=== PATIENT | male | born 1975 | race Caucasian/White ===

== ENCOUNTER 2024-02-03 05:19 | Observation (INO) ==
--- NOTE | 2024-01-13 13:02 | PAT Medication Instructions ---
Medication Instructions Date of Service January 13, 2024 Home Medications escitalopram oxalate 10 mg tablet 10 mg PO HS Take evening before surgery escitalopram oxalate 10 mg tablet 10 mg PO HS NOTHING TO EAT OR DRINK AFTER MIDNIGHT Other Notes If you have any questions please call us at [phone] or [phone] or [phone] or [phone]
--- NOTE | 2024-01-15 09:11 | Anesthesiology Consultation ---
Date of Service January 15, 2024 Assessment & Plan (1) Encounter for pre-operative examination: - Outpatient joint assessment: Patient is currently scheduled for inpatient pathway. If re-evaluated and patient/surgeon requests outpatient pathway, patient is acceptable candidate for outpatient joint program from anesthesia standpoint pending surgeon's office assessment of pt motivation/support/completion of same day joint program preop requirements. Chart Review Chart Review: Acceptable Risk for Surgery and Patient seen in Pre Admission Testing Teaching & Discussion Pre-Anesthesia Teaching/Discussion Notes: Instructed NPO after midnight before surgery, except medications with 15 cc of water. Medication instructions provided according to the PAT guidelines. History Surgery Operation Date: 02/03/24 10:40 Proposed Procedures p Left Total Hip Arthroplasty - Parminder Crocker MD Height/Weight Height: 5 ft 7 in Weight: 98.2 kg Allergies Allergy/AdvReac Type Severity Reaction Status Date / Time No Known Drug Allergies Allergy Unknown . Verified 01/13/24 07:33 Medications Home Medications Medication Instructions Recorded Confirmed Last Taken escitalopram oxalate 10 mg tablet 10 mg PO HS 01/13/24 01/13/24 Unknown Past Medical History Medical History Anxiety History of COVID-19 (2020) no hosp; resolved Patient denies h/o stroke, seizures, heart attack, heart failure, DM, HTN, blood clots/DVTs or blood transfusions. Exercise / Class Metabolic Activity II 4-5 Yardwork/Stairs/Walk up hill (denies chest discomfort or shortness of breath with one flight of stairs) Past Family History Family History Other No family history of adverse response to anesthesia Past Surgical History Surgical History (Updated 01/15/24 @ 09:18 by Nandini Kirby PA-C) History of esophagogastroduodenoscopy (EGD) History of open reduction and internal fixation (ORIF) procedure right foot fracture History of removal of retained hardware right foot Hx of colonoscopy Past Anesthesia History No Hx of Anesthesia Complications and No Family Hx of Anesthesia Complications History of PONV No Hx of PONV and No Hx of Motion Sickness Social History Smoking Status: Never smoker Do You Dip or Chew Tobacco: No Hx Alcohol Use: No Hx Substance Use: No substance use type: does not use Review of Systems Snoring, denies witnessed apneas. Patient denies chest pain, shortness of breath, dyspnea on exertion, reflux, fever, chills, cough, wheezing, or palpitations. Physical Exam Vital Signs Vitals BP 116/81 P 65 TEMP 98.1 SP02 96% on RA RESP 18 Physical Patient resting comfortably in chair in no acute distress, alert and oriented, responding appropriately throughout visit Full cervical extension range of motion without pain TMD 3.5 finger breadths Mallampati Score 2 Dentition: broken left side tooth, denies loose teeth, caps/crowns, implants or bridges Lungs: normal respiratory effort. Good air movement, clear throughout to auscultation, no adventitious breath sounds Cardiac: regular rate and rhythm, no murmurs noted Carotid arteries: negative bruit bilat Lab Results Anesthesia Preop Results Results Anesthesia Widget: WBC 6.19 K/ul (4.8-10.8) 01/15/24 Hgb 15.5 g/dl (14.0-18.0) 01/15/24 Hct 42.7 % (42.0-52.0) 01/15/24 Plt 219 K/uL (130-400) 01/15/24 Na 140 mmol/L (136-145) 01/15/24 K 4.0 mmol/L (3.5-5.1) 01/15/24 Cl 105 mmol/L (98-107) 01/15/24 CO2 30 mmol/L (21-32) 01/15/24 BUN 11 mg/dl (6-23) 01/15/24 Creat 0.84 mg/dl (0.6-1.4) 01/15/24 Glucose Level 93 mg/dl (70-99(Fasting)) 01/15/24 PT 11.1 Seconds (9.0-12.0) 01/15/24 PTT 29 Seconds (21-31) 01/15/24 INR 1.0 (0.9-1.1) 01/15/24 Blood Type O Positive 01/15/24 Antibody Screen NEGATIVE 01/15/24 Testing Electrocardiogram Date: 01/15/24 Sinus bradycardia, rate 58 bpm Left anterior fascicular block Chest X-Ray Date: 01/15/24 No acute process.
--- NOTE | 2024-01-30 17:35 | History & Physical Report ---
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 His exam is certainly more impressive than the x-rays. He is got very stiff hips. I think this is the source of the majority of his problems. NuPrep plan we talked about treatment Pees bit he is exhausted conservative care. He would like to proceed with definitive treatment of the left hip. Will proceed with left hip replacement. Risks Mente this procedure explained. He is fully aware his young age this might need to be revised in the future. He is kenny plan stay in the hospital overnight. Discharge postop day 1. Aspirin DVT prophylaxis History of Present Illness Chief Complaint: . Bilateral hip pain discomfort and stiffness left side greater than the right. Primary Care Provider: Douglas Ricci PA-C . 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 He has a longstanding gradual progressive hip pain and discomfort and stiffness of the left side worse than the right. Describes it is gotten worse over time. He is having difficulty maintaining an active lifestyle. He has difficulty putting shoes and socks on. He does not wrestle anymore due to hip pain and stiffness. Takes medicines with minimal relief. He may like to proceed with definitive treatment. Allergies Allergy/AdvReac Type Severity Reaction Status Date / Time No Known Drug Allergies Allergy Unknown . Verified 01/13/24 07:33 Home Medications Medication Instructions Recorded Confirmed Type escitalopram oxalate 10 mg tablet 10 mg PO HS 01/13/24 01/13/24 History Past Med/Surg History Problem List Encounter for pre-operative examination Bilateral hip joint arthritis Right rotator cuff tendinitis Degenerative joint disease of left hip Medical History Anxiety History of COVID-19 (2020) no hosp; resolved Surgical History History of esophagogastroduodenoscopy (EGD) Hx of colonoscopy History of removal of retained hardware right foot History of open reduction and internal fixation (ORIF) procedure right foot fracture Family History Other No family history of adverse response to anesthesia Social History Smoking Status: Never smoker Second Hand Exposure: No; Do You Dip or Chew Tobacco: No; Hx Alcohol Use: No Hx Substance Use: No Preferred Language: Thai Communication Ability: Effective 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 Physical Exam . Physical examination reveals a pleasant middle-age male who looks in pretty good health. His gait shows a gentleman who walks with externally rotated feet. Walks with a bit of a limp and waddling, gait. Examination left hip reveals a very stiff hip. His leg lengths are pretty equal. He cannot even internally rotate to neutral. This is causes pain. No knee effusion. He is neurologically intact. Constitutional WD/WN, vitals as above Neck trachea midline, no thyromegaly Respiratory normal respiratory effort, lungs clear to auscultation Cardiovascular RRR, no murmur, no edema Gastrointestinal (Abdomen) normal bowel sounds, soft, nontender, no hepatosplenomegaly Results & Data Results & Data Laboratory Results . Diagnostic Findings . X-rays of both hips were reviewed. Shows moderately advanced hip arthritis. Is got osteophytes around the acetabulum as well as the femoral head on both sides. Good cam type impingement. PG Care Time/CCT Total # of Minutes Spent Total Time Spent with Patient: Total time spent is greater than 50% in coordination of care (as documented) at patient's floor/unit and/or counseling patient: Coding Level of Care Code None Diagnoses Bilateral hip joint arthritis M16.0
[2024-02-03] MEDS: LR 500ML BOLUS, THEN 15ML/HR IV SCH (06:07)
[2024-02-03] MEDS: METOCLOPRAMIDE HCL 10 MG TABLET PO SCH (06:09)
[2024-02-03] MEDS: CeleBREX 200 MG CAP PO SCH (06:09)
[2024-02-03] MEDS: ACETAMINOPHEN 500 MG TAB PO SCH ×3 (06:09→20:22)
[2024-02-03] MEDS: FAMOTIDINE 20 MG TAB PO SCH (06:09)
[2024-02-03] MEDS: LR 60ML/HR IV SCH (06:10)
[2024-02-03] MEDS ORDERED: BUPIVACAINE 0.5 % 5 MG/1 ML PF 10ML VIAL ONE (06:26)
--- NOTE | 2024-02-03 06:43 | History & Physical Bridge Note ---
Date of Service February 03, 2024 History & Physical Bridge Note I have examined the patient, reviewed the History & Physical and in the interval since the performance of the History & Physical I have noted the following changes of clinical significance: no changes noted
[2024-02-03] MEDS ORDERED: MIDAZOLAM HCL 1 MG/ML 2ML VIAL ONE ×3 (06:47→06:50)
[2024-02-03] MEDS ORDERED: fentaNYL citrate PF 100 MCG/2 ML VIAL ONE (06:48)
[2024-02-03] MEDS: TRANEXAMIC ACID 1,000 MG **IV Pre-op IV SCH (06:55)
[2024-02-03] MEDS: ceFAZolin 2000MG 2,000 MG/15 ML SYR IV SCH ×2 (07:04→14:41)
[2024-02-03] MEDS ORDERED: PROPOFOL IV EMULSION 10 MG/ML 20 ML VIAL IV ONE (07:40)
[2024-02-03] MEDS: BUPIVACAINE/EPINEPHRINE 0.5% MPF 1:200,000 30 ML VIAL ONE (07:43)
[2024-02-03] MEDS ORDERED: ePHEDrine sulfate 50 MG/5 ML SYR ONE (07:50)
[2024-02-03] MEDS ORDERED: ePHEDrine sulfate 50 MG/ML AMP IV PRN (08:14)
[2024-02-03] MEDS ORDERED: HYDROmorphone INJ 2 MG/ML SYR/VIAL IV PRN (08:14)
[2024-02-03] MEDS ORDERED: PROMETHAZINE HCL 6.25 MG in SODIUM CHLORIDE 0.9% 50 ML IV PRN (08:14)
[2024-02-03] MEDS ORDERED: fentaNYL citrate PF 100 MCG/2 ML VIAL IV PRN (08:14)
[2024-02-03] MEDS ORDERED: ATROPINE SULFATE 0.1 MG/ML 10ML SYR IV PRN (08:14)
[2024-02-03] MEDS ORDERED: ONDANSETRON INJ 2 MG/ML 2 ML VIAL IV PRN ×2 (08:14→10:29)
--- NOTE | 2024-02-03 08:46 | Operative Report ---
PG Post Operative Report Pre & Post Diagnosis Operation Date: 02/03/24 07:00 Pre-Op Diagnosis: Osteoarthritis Hip Left Post-Op Diagnosis: Osteoarthritis Hip Left I identified the patient and participated in the time-out.: Yes Procedure Operation Date: 02/03/24 07:00 Actual Procedures p Left Total Hip Arthroplasty(Left) - Parminder Crocker MD Surgeon Parminder Crocker MD Partnership Manager Db Noguera PA-C Estimated Blood Loss 200 Findings Consistent with Post-Op Diagnosis Operative findings revealed a left hip arthritis. He had a fairly significant hip joint effusion. The osteophytes around the femoral head. Lateral acetabular osteophytes. Very stiff hip preoperatively. Specimens Left femoral head sent for pathology. 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 Is been through extensive conservative treatment which become less successful over time. X-rays showed a moderate to advanced hip arthritis. He had a lot of cam type impingement. Very stiff hips. He elected to the left total hip arthroplasty. Description of Procedure Operative implants consist of: 1 Biomet G7 size 56 mm acetabular shell. 2. [place] hole exerciser horse. 3. Highly cross-linked polyethylene liner with a 56 mm outer diameter 36 mm inner diameter. 4. 6.5 cancellous acetabular screws 1 at 35 mm in length and 1 of 30 mm length. 5. DePuy Karaya size 11 KLA femoral stem. 6. +1.5/36 mm ceramic articular ball. The patient was taken the op room, identified, placed on the operating table in the supine position. All contractors were appropriately padded. IV antibiotics tried by anesthesia team. A spinal anesthetic had been implemented holding area. The patient was then placed in the right lateral decubitus position. An axillary roll was placed. A stool Birkett position was used for positioning. The left hip and leg were then prepped and draped in usual sterile fashion. A posterior lateral approach to the left hip was then performed with a curvilinear incision centered over the greater trochanter. Sharp dissection was got through subcutaneous tissue down to level the IT band gluteal fascia the IT band gluteal fascia incised longitudinally in line with skin incision. The underlying greater bursa was excised. The piriformis and external rotators along with the posterior hip joint capsule were then released in the posterior aspect the hip as a single layer. He did have a pretty significant hip joint effusion. The muscle of the gluteus ernst did extend pretty far distally which made exposure little bit more difficult. Hip was internally rotated and dislocated. Femoral neck osteotomy cut was made with Final Cut 15 mm above the lesser trochanter. Femoral head was removed and sent for pathology. The femur was retracted anteriorly. Attention drawn the acetabulum. The acetabular labrum was excised. Pulmonary fat was excised. Sequential reaming the acetabular was then performed and was sized 47 and progressing up to 55. I reamed some with a 56 reamer and then placed a Biomet G7 acetabular shell in about 40 degrees lateral opening and 20 degrees of anteversion. It was fixed with two 6.5 screws. A trial liner was placed. Attention drawn the femur. The proximal femur was entered with a Saberr cutter followed by canal finder. I then broached beginning size 8 and progressing up to 11. Excellent fit 11. We trialed the hip. With the +5 articular ball which is seen too tight. That was fully stable. We therefore elected to use the +1.5 articular ball. The hip was fully stable. Still a bit tight in extension but I elected to except this. Leg lengths seemed equal. All trial implants were removed. An apex hole exerciser horse was placed. Highly cross-linked polyethylene liner was placed. A size 11 KLA femoral stem was impacted in position. A +1.5/36 mm ceramic articular ball was placed. Hip was located and once again found to be stable. Attention drawn toward closing. The wound was irrigated coconuts of normal saline. We did inject locally with 60 cc of absent Marcaine with epinephrine. The posterior capsule and external rotators were then repaired through drill holes in the posterior trochanter with #2 Tycron suture. The IT band gluteal fascia then closed in 1 PDS suture in running fashion with subcutaneous tissues then closed with 2 Dexon suture in a buried interrupted fashion. Skin was closed skin sai. Leg was then cleaned and dried and sterile dressed with Xeroform, 4 fours, ABD pad and foam tape was applied. Patient then transferred to the recovery room in stable condition. Patient tolerated procedure well and there were no complications. Db Noguera, my physician activity assistant, was present for the entire procedure. His assistance was essential and required for appropriate patient positioning, prepping and draping, surgical exposure, performing the technical details of the operation, placement the implants, closure of the wound, and placement of the sterile bandage. I attest to the content of the Intraoperative Record and any orders documented therein. Any exceptions are noted below.
--- NOTE | 2024-02-03 09:44 | XRay Report ---
XR hip 1V LT w pelvis HISTORY: 48 years-old Male IN PACU - Post Surgical left hip arthroplasty COMPARISON: Radiographs 01/04/2024 TECHNIQUE: AP view the pelvis with crosstable lateral view of the left hip FINDINGS: Satisfactory alignment of the left hip arthroplasty. Lateral skin sai are present along with expe cted postoperative soft tissue swelling with deep tissue air. Moderate to severe right hip osteoarthr itis again noted. IMPRESSION: Satisfactory alignment of the left hip arthroplasty. ACT 112: Negative or not required by law. The above report was generated using voice recognition software. It may contain grammatical, syntax o r spelling errors. Electronically signed by: Surya Marlow M.D. 02/03/2024 9:43 AM
[2024-02-03] MEDS ORDERED: NALOXONE HCL 0.4 MG/1 ML VIAL/CARP IV PRN (10:29)
[2024-02-03] MEDS ORDERED: ALUMINUM/MAGNESIUM SUSP 30 ML UDC PO PRN (10:29)
[2024-02-03] MEDS ORDERED: METOCLOPRAMIDE HCL INJ 5 MG/ML 2 ML VIAL IV PRN (10:29)
[2024-02-03] MEDS ORDERED: diphenhydrAMINE Capsule 25 MG CAP PO PRN (10:29)
[2024-02-03] MEDS ORDERED: HYDROmorphone INJ 0.5 MG/0.5 ML SYR IV PRN (10:29)
[2024-02-03] MEDS ORDERED: MAGNESIUM HYDROXIDE SUSP 30 ML UDC PO PRN (10:29)
[2024-02-03] MEDS ORDERED: TAMSULOSIN HCL 0.4 MG CAP PO PRN (10:29)
[2024-02-03] MEDS ORDERED: bisacodyL 10 MG SUPP PR PRN (10:29)
[2024-02-03] MEDS: SODIUM CHLORIDE 0.9% 1,000 ML IV SCH (10:59)
--- NOTE | 2024-02-03 11:42 | Anesthesiology Progress Note ---
Date of Service February 03, 2024 Anesthesia Post Procedure Vital Signs Vital Signs: Temp Pulse Pulse Pulse Resp BP BP 02/03/24 11:14 36.5 C 64 18 119/76 02/03/24 10:40 36.4 C L 61 18 110/73 02/03/24 10:20 36.4 C L 65 16 106/68 02/03/24 10:00 66 13 107/65 02/03/24 09:45 60 12 100/69 02/03/24 09:30 61 12 108/67 02/03/24 09:20 36.3 C L 60 12 106/65 02/03/24 09:10 62 12 108/69 02/03/24 09:00 64 12 106/70 02/03/24 08:50 60 12 98/63 L 02/03/24 08:42 36.3 C L 69 16 110/68 02/03/24 05:46 36.4 C L 61 20 135/86 Pulse Ox O2 Del Method 02/03/24 11:14 98 Room Air 02/03/24 10:40 97 Room Air 02/03/24 10:20 96 Room Air 02/03/24 10:00 98 Room Air 02/03/24 09:45 95 Room Air 02/03/24 09:30 95 Room Air 02/03/24 09:20 96 Room Air 02/03/24 09:10 96 Room Air 02/03/24 09:00 98 Room Air 02/03/24 08:50 97 Room Air 02/03/24 08:42 95 Room Air 02/03/24 05:46 97 Room Air Pain Intensity Left Hip: Pain Intensity: 4 Transfer of Care Handoff Completed per policy Notes Mental Status: alert / awake / arousable and participated in evaluation Patient Amnestic to Procedure: Yes Nausea / Vomiting: adequately controlled Pain: adequately controlled Airway Patency, RR, SpO2: stable & adequate BP & HR: stable & adequate Hydration State: stable & adequate Anesthetic Complications: no major complications apparent
[2024-02-03] MEDS: DOCUSATE SODIUM 100 MG CAP PO SCH (12:07)
[2024-02-03] MEDS: SENNA 8.6 MG TAB PO SCH ×2 (12:07→20:23)
[2024-02-03] MEDS: ASPIRIN 81 MG ECTAB PO SCH (12:08)
[2024-02-03] MEDS: MULTIVITAMIN TAB PO SCH (12:08)
[2024-02-03] MEDS: KETOROLAC 30 MG/ML VIAL IV SCH (12:09)
[2024-02-03] MEDS ORDERED: Nursing to Pharmacy Communication SCH (12:30)
[2024-02-03] MEDS: TRANEXAMIC ACID / 0.7% NACL 1,000 MG/100 ML BAG IV SCH (14:51)
[2024-02-03] MEDS: traMADol HCL 50 MG TABLET PO PRN (16:19)
[2024-02-03] MEDS: ASCORBIC ACID 500 MG TAB PO SCH (17:39)
[2024-02-03] MEDS: ESCITALOPRAM OXALATE 10 MG TAB PO SCH (20:23)
[2024-02-04 06:21] LABS: Basophils # (auto) 0.03 K/uL (0.00-0.20); Basophils % (auto) 0.3 %; Eosinophils # (auto) 0.11 K/uL (0.00-0.50); Eosinophils % (auto) 1.1 %; Hematocrit (blood only) 37.8 % (42.0-52.0); Hemoglobin 13.6 g/dl (14.0-18.0); Immature Granulocytes # (auto) 0.03 K/uL (0.01-0.20); Immature Granulocytes % (auto) 0.3 %; Lymphocytes # (auto) 1.81 K/uL (1.20-3.40); Lymphocytes % (auto) 17.8 %; Mean Corpuscular Hemoglobin 28.7 pg (25.0-34.0); Mean Corpuscular Volume 79.7 fL (80.0-100.0); Mean Platelet Volume 10.2 fL (9.4-12.4); Monocytes # (auto) 0.88 K/uL (0.11-0.59); Monocytes % (auto) 8.6 %; Neutrophils # (auto) 7.32 K/uL (1.40-6.50); Neutrophils % (auto) 71.9 %; Platelet Count 185 K/uL (130-400); RDW Coefficient of Variation 12.9 % (11.5-14.5); RDW Standard Deviation 36.8 fL (36.4-46.3); Red Blood Count 4.74 M/uL (4.70-6.10); White Blood Count 10.18 K/ul (4.8-10.8)
[2024-02-04 06:40] LABS: BUN Creatinine Ratio 16.7 (10-20); Calcium 8.4 mg/dl (8.6-10.3); Creatinine Clr Calc Pharmacy 128.2 ml/min
--- NOTE | 2024-02-04 06:53 | Orthopedic Progress Note ---
Date of Service February 04, 2024 Assessment & Plan (1) Status post left hip replacement: Plan: 48-year-old male postop day 1 from left hip replacement doing pretty well. Having some soreness which is to be expected. His hips located. He is neurologically intact. Plan: 1. DVT prophylaxis including thigh-high teds, SCDs, aspirin twice a day. 2. PT/OT. Weight-bear as tired. Left total hip protocol. 3. Pain control doing okay with current pain regimen. 4. Disposition. Plan to discharge to home with home health after therapy today. Admission and Anticipated Discharge Date Admission Date: February 03, 2024 Subjective 48-year-old gentleman postop day 1 from left hip replacement. He is doing pretty well. Describes frequent bit of soreness in his buttock area and that is about it. No chest pain or shortness of breath. Not feeling dizzy or lightheaded. Physical Exam Physical Exam: Physical exam shows a pleasant middle-age male. Lying bed looks pretty comfortable. Examination left hip reveals dressing be clean dry and intact. Leg lengths are equal. He can dorsiflex and plantarflex his foot appropriately. He is neurologically intact. Respiratory: normal respiratory effort, lungs clear to auscultation Cardiovascular: RRR, no murmur, no edema Gastrointestinal (Abdomen): normal bowel sounds, soft, nontender, no hepatosplenomegaly Results & Data Vital Signs (Past 12 Hours) Vital Signs Temp Pulse Resp BP Pulse Ox O2 Del Method 02/04/24 03:00 36.5 C 67 16 107/68 97 Room Air 02/03/24 23:00 36.7 C 71 18 110/72 97 Room Air 02/03/24 19:00 36.8 C 75 18 117/74 97 Room Air Laboratory Results Hemoglobin is 13.6. Hematocrit 37.8. Electrolytes are stable.
[2024-02-04 07:26] VITALS: BP 118/75; PULSE 76; RESP 18; TEMP 98.1; O2SAT 98
[2024-02-04] MEDS: dexAMETHasone 10 MG in SYRINGE 0 ML IV SCH (07:47)
[2024-02-04] MEDS: INFLUENZA VACC TS2024-25(6m+)/PF (IIV3) 0.5mL Syr IM ONE (10:00)
--- NOTE | 2024-02-08 08:09 | Discharge Summary ---
Date of Service February 08, 2024 Admission HPI (Per Admitting) . 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 He has a longstanding gradual progressive hip pain and discomfort and stiffness of the left side worse than the right. Describes it is gotten worse over time. He is having difficulty maintaining an active lifestyle. He has difficulty putting shoes and socks on. He does not wrestle anymore due to hip pain and stiffness. Takes medicines with minimal relief. He may like to proceed with definitive treatment. Admission Exam (Per Admitting) . Physical examination reveals a pleasant middle-age male who looks in pretty good health. His gait shows a gentleman who walks with externally rotated feet. Walks with a bit of a limp and waddling, gait. Examination left hip reveals a very stiff hip. His leg lengths are pretty equal. He cannot even internally rotate to neutral. This is causes pain. No knee effusion. He is neurologically intact. Principal Diagnosis Same as "Discharge Diagnosis" noted below under Discharge Instructions. Discharge Data Procedures Performed Operation Date: 02/03/24 07:00 Actual Procedures p Left Total Hip Arthroplasty(Left) - Parminder Crocker MD Hospital Course (1) Status post left hip replacement: This is a 48 year old patient admitted on 02/03/24 and underwent total hip arthroplasty. He tolerated the procedure well and there were no complications. Transferred to the PACU post op and later to the orthopedic floor for further care. He was given ancef for antibiotic prophylaxis. He was also given ZAK stockings, SCDs, and aspirin for DVT prophylaxis. Hemoglobin, hematocrit, and vital signs were monitored during his hospital stay and remained stable. Did not require any blood transfusions. There were no complications during his hospital stay. By post op day #1 the patient was tolerating a regular diet, pain was reasonably controlled with oral pain medicine, and he was participating in physical therapy. On post op day #1 the patient was discharged home and set up with home health care. He was given printed discharge instructions including prescriptions for extra strength tylenol, aspirin, ketorolac, zofran, senokot, and tramadol. Continue hip precautions. Continue physical therapy, weight bearing as tolerated. Continue ZAK stockings. Follow up approximately 2 weeks post op or sooner if there are problems or concerns. PG Care Time/CCT Total # of Minutes Spent Total Time Spent with Patient: Total time spent is greater than 50% in coordination of care (as documented) at patient's floor/unit and/or counseling patient: Discharge Plan Discharge Items Patient Disposition: Home - Home Health Services Reason For Visit: POST SURGICAL CARE Discharge Diagnosis: Left HIp replacement Activity: Per Instructions section Activity Comment: Follow/Obey hip precautions at all times. Weightbearing: Full weightbearing Weightbearing Comment: Weightbear as tolerated obeying hip precautions at all times. Non-emergency contact: Surgeon Call non-emergency contact if: you have any medication questions Follow-up/Referrals: Douglas Ricci PA-C [Primary Care Provider] - Diet: Regular Addtl Attending Provider Instructions: ACTIVITY RECOMMENDATIONS: Diet: * You may resume previous diet. Physical Therapy: * Aggressive physical therapy is not usually needed. You will learn to take care of yourself safely and walk. * Follow the "Hip Precautions Instructions." * In some cases, the social work program coordinator at the hospital will arrange to have a therapist come to your house for the first couple of weeks to help you learn these skills. * You need to practice on your own or with the help of a family member as needed. * When you learn these skills, most of the therapy can be done on your own. Home Exercise: * You were shown a series of exercises in the hospital. Do these exercises three to four times each day including the exercises you were shown in physical therapy. Walking: * Get up and walk several times each day. For the first four weeks, try not to stand or walk for more than one hour at a time. If you do stand or walk for more than one hour, you will not hurt anything, but your leg will likely swell. * As you feel comfortable, you may change from the walker or crutches to a cane and then to independent walking. MEDICATIONS: New Medicine: * You will likely be taking one or more of these medicines: 1. Tramadol - Take, as directed, when you need it, every six hours to control your pain. 2. Aspirin - Thins your blood to lessen the chance of forming a blood clot. * The most common side effects of pain medicine and iron are nausea and constipation. If nausea or constipation is too much of a problem or if you have any questions about your new medicines or doses, call [facility] [place] at . We will try to help you manage these issues. "VERY IMPORTANT TO READ AND REVIEW" Pain: * The immediate post-operative period after hip replacement surgery is often quite painful. * You are given a prescription for pain medicine. You should take it, as directed, when you need it, especially before physical therapy and before going to bed. Pain that interferes with sleep is very common and can last several months. * You will likely need pain medicine for the first two to four weeks. It will not stop all of the pain. The pain will lessen and as you feel better, you may change to milder pain medicine such as Tylenol. * The most common side effects of pain medicine are nausea and constipation, so don't take more than you need. SPECIAL CARE INSTRUCTIONS: TEDs/Elastic Stockings: * The white elastic stockings help limit swelling and prevent blood clots from forming in your legs. The more you wear them, the more they work. * Wear them for six weeks. Incision Site Care: * Remove dressing postoperative day 2 and then shower. Keep direct shower pressure off the incision site. * After showering, cover sai with dry gauze and change daily or more frequently if the dressing is getting saturated with drainage. * May completely stop using bandage if wound is dry and no drainage * Sai are removed between 2 and 3 weeks post-op. If your follow-up appointment is made before 2 weeks, please have your appointment re- scheduled. It is too early to remove the sai. Prevention of Infection: * Take antibiotics one hour before any dental cleaning, dental work, urological procedure, gastrointestinal procedure or any invasive surgery in order to prevent your new joint from getting infected. * You may get the antibiotics from the doctor performing the procedure or you may call our office at before and we will call in a prescription to the pharmacy of your choice. Things to Watch For: * Drainage from the incision site that occurs more than one week after your surgery. * Severely increased leg pain or swelling. * Increased redness at the incision site. * Fever above 102 degrees Fahrenheit. * Unusual chest pain or shortness of breath. * Unusual pain or burning with urination. Call [facility] [place] at with any of the above problems or if you have any questions about your medicines or recovery. FOLLOW UP VISIT: Make an appointment to see your doctor for approximately two weeks after surgery for a progress check and staple removal by calling the office at . Pending Studies at Discharge: No Stand-Alone Forms: My [facility], Smoking Cessation Medications and DC Order Prescriptions: Continued tramadol 50 mg tablet 50 - 100 mg PO Q6 PRN (Reason: pain) Qty: 40 0RF Rx Instructions: Take as needed for pain ondansetron 4 mg tablet,disintegrating 4 mg PO Q8 PRN (Reason: nausea) Qty: 20 1RF Rx Instructions: Take as needed for nausea ketorolac 10 mg tablet 10 mg PO Q6 5 Days Qty: 20 0RF Rx Instructions: Take 4 times per day with food for 5 days to lessen pain and swelling. sennosides [Senokot] 8.6 mg tablet 8.6 mg PO BID 14 Days Qty: 28 0RF Rx Instructions: Take two times a day to prevent/treat constipation acetaminophen [Tylenol Extra Strength] 500 mg tablet 1,000 mg PO TID 30 Days Qty: 180 0RF Rx Instructions: Take 3 times per day to lessen pain. aspirin [Gracia Low Dose Aspirin] 81 mg tablet,delayed release (DR/EC) 81 mg PO BID 45 Days Qty: 90 0RF Rx Instructions: Take to prevent blood clots. escitalopram oxalate 10 mg tablet 10 mg PO HS Admission Data Admit Date/Time: 02/03/24 08:42 Attending Provider: Parminder Crocker Admit Provider: Parminder Crocker Primary Care Provider: Douglas Ricci Other Providers: [facility],Home [facility] Other Interventions: Discharge Summary Assessment (RN) Last Done: 02/04/24 10:09
== END 2024-02-04 11:18 | disposition home health service (06) ==
LOC: ASU 05:19 → 3E 05:19